=== PATIENT | male | born 1960 | race Caucasian/White ===

== ENCOUNTER 2020-12-29 03:37 | Outpatient (CLI) | payer OTHER, SELFPAY ==
[2020-12-29 13:34] LABS: Abs Immature Grans 0.03 10^3/uL (0.0-0.06); Absolute Basophil Count 0.06 10^3/uL (0.0-0.2); Absolute Eosinophil Count 0.32 10^3/uL (0.0-0.7); Absolute Lymphocyte Count 0.98 10^3/uL (1.2-3.4); Absolute Monocyte Count 0.48 10^3/uL (0.1-0.8); Absolute Neutrophil Count 2.86 10^3/uL (1.2-6.7); Basophils % 1.3; Eosinophils % 6.8; HCT 46.6 % (40.0-50.0); Immature Grans % 0.6; Lymphocytes % 20.7; MCH 28.9 pg (27.0-33.0); MCHC 34.3 % (32.0-36.0); MCV 84.3 fL (80-95); MPV 8.6 fL (8.0-11.0); Monocytes % 10.1; Neutrophils % 60.5; Nucleated RBC 0 %; Platelet Count 198 10^3/uL (130-400); RBC 5.53 10^6/uL (4.36-5.78); RDW 12.3 % (11.8-14.1); RDW-SD 37.4 fL; WBC 4.73 10^3/uL (4.4-10.8)
[2020-12-29 13:57] LABS: ALT 28 U/L (16-63); AST 18 U/L (15-37); Albumin 3.7 g/dL (3.4-5.0); Alkaline Phosphatase 63 U/L (46-116); Anion Gap 8.8 mmol/L (3-11); BUN 13 mg/dL (7-18); Bilirubin, Total 0.5 mg/dL (0.2-1.0); CO2 26.2 mmol/L (21.0-32.0); Calcium 8.7 mg/dL (8.5-10.1); Chloride 105 mmol/L (98-107); Glucose 99 mg/dL (74-106); Potassium 4.1 mmol/L (3.5-5.1); Sodium 140 mmol/L (136-145); Total Protein 7.3 g/dL (6.4-8.2)
== END 2020-12-29 03:38 | disposition home or self-care (01) ==
LOC: LBO 03:38
PROVIDERS: PCP Nurse Practitioner Family; Visit Provider Internal Medicine Hematology & Oncology
DX: C20 Malignant neoplasm of rectum (principal)
CPT/HCPCS: 36415; 80053; 85025

== ENCOUNTER 2021-01-05 03:37 | Outpatient (CLI) | payer OTHER, SELFPAY ==
[2021-01-05 13:01] LABS: Abs Immature Grans 0.01 10^3/uL (0.0-0.06); Absolute Basophil Count 0.04 10^3/uL (0.0-0.2); Absolute Eosinophil Count 0.34 10^3/uL (0.0-0.7); Absolute Lymphocyte Count 0.71 10^3/uL (1.2-3.4); Absolute Monocyte Count 0.51 10^3/uL (0.1-0.8); Absolute Neutrophil Count 2.97 10^3/uL (1.2-6.7); Basophils % 0.9; Eosinophils % 7.4; HCT 46.4 % (40.0-50.0); HGB 15.6 g/dL (13.5-17.5); Immature Grans % 0.2; Lymphocytes % 15.5; MCH 28.7 pg (27.0-33.0); MCHC 33.6 % (32.0-36.0); MCV 85.5 fL (80-95); MPV 8.6 fL (8.0-11.0); Monocytes % 11.1; Neutrophils % 64.9; Nucleated RBC 0 %; Platelet Count 165 10^3/uL (130-400); RBC 5.43 10^6/uL (4.36-5.78); RDW-SD 38.2 fL; WBC 4.58 10^3/uL (4.4-10.8)
[2021-01-05 13:11] LABS: ALT 27 U/L (16-63); AST 18 U/L (15-37); Albumin 3.7 g/dL (3.4-5.0); Alkaline Phosphatase 60 U/L (46-116); Anion Gap 6.4 mmol/L (3-11); BUN 11 mg/dL (7-18); Bilirubin, Total 0.5 mg/dL (0.2-1.0); CO2 28.6 mmol/L (21.0-32.0); CREATININE 0.8 mg/dL (0.70-1.30); Calcium 8.4 mg/dL (8.5-10.1); Chloride 107 mmol/L (98-107); Glucose 95 mg/dL (74-106); Sodium 142 mmol/L (136-145)
== END 2021-01-05 03:38 | disposition home or self-care (01) ==
LOC: LBO 03:37
PROVIDERS: PCP Nurse Practitioner Family; Visit Provider Internal Medicine Hematology & Oncology
DX: C20 Malignant neoplasm of rectum (principal)
CPT/HCPCS: 36415; 80053; 85025

== ENCOUNTER 2021-01-12 04:16 | Outpatient (CLI) | payer OTHER, SELFPAY ==
[2021-01-12 13:40] LABS: Abs Immature Grans 0.01 10^3/uL (0.0-0.06); Absolute Basophil Count 0.05 10^3/uL (0.0-0.2); Absolute Eosinophil Count 0.36 10^3/uL (0.0-0.7); Absolute Lymphocyte Count 0.59 10^3/uL (1.2-3.4); Absolute Monocyte Count 0.58 10^3/uL (0.1-0.8); Absolute Neutrophil Count 4.61 10^3/uL (1.2-6.7); Basophils % 0.8; Eosinophils % 5.8; HGB 16.1 g/dL (13.5-17.5); Immature Grans % 0.2; Lymphocytes % 9.5; MCH 29.1 pg (27.0-33.0); MCHC 34.3 % (32.0-36.0); MCV 84.8 fL (80-95); MPV 8.5 fL (8.0-11.0); Monocytes % 9.4; Neutrophils % 74.3; Nucleated RBC 0 %; Platelet Count 136 10^3/uL (130-400); RBC 5.54 10^6/uL (4.36-5.78); RDW 13.6 % (11.8-14.1); RDW-SD 39.3 fL
[2021-01-12 13:54] LABS: ALT 25 U/L (16-63); AST 20 U/L (15-37); Albumin 3.9 g/dL (3.4-5.0); Alkaline Phosphatase 69 U/L (46-116); Anion Gap 8.7 mmol/L (3-11); BUN 11 mg/dL (7-18); Bilirubin, Total 0.6 mg/dL (0.2-1.0); CO2 27.3 mmol/L (21.0-32.0); CREATININE 0.9 mg/dL (0.70-1.30); Calcium 8.5 mg/dL (8.5-10.1); Chloride 104 mmol/L (98-107); Glucose 113 mg/dL (74-106); Potassium 3.8 mmol/L (3.5-5.1); Sodium 140 mmol/L (136-145); Total Protein 7.5 g/dL (6.4-8.2)
== END 2021-01-12 04:17 | disposition home or self-care (01) ==
LOC: LBO 04:17
PROVIDERS: PCP Nurse Practitioner Family; Visit Provider Internal Medicine Hematology & Oncology
DX: C20 Malignant neoplasm of rectum (principal)
CPT/HCPCS: 36415; 80053; 85025

== ENCOUNTER 2021-01-19 03:50 | Outpatient (CLI) | payer OTHER, SELFPAY ==
[2021-01-19 13:40] LABS: Abs Immature Grans 0.01 10^3/uL (0.0-0.06); Absolute Basophil Count 0.06 10^3/uL (0.0-0.2); Absolute Eosinophil Count 0.35 10^3/uL (0.0-0.7); Absolute Lymphocyte Count 0.45 10^3/uL (1.2-3.4); Absolute Monocyte Count 0.49 10^3/uL (0.1-0.8); Absolute Neutrophil Count 4.56 10^3/uL (1.2-6.7); Eosinophils % 5.9; HCT 45.6 % (40.0-50.0); HGB 15.8 g/dL (13.5-17.5); Immature Grans % 0.2; Lymphocytes % 7.6; MCH 29.3 pg (27.0-33.0); MCHC 34.6 % (32.0-36.0); MCV 84.6 fL (80-95); MPV 8.7 fL (8.0-11.0); Monocytes % 8.3; Nucleated RBC 0 %; Platelet Count 140 10^3/uL (130-400); RBC 5.39 10^6/uL (4.36-5.78); RDW 14.7 % (11.8-14.1); RDW-SD 42.8 fL; WBC 5.92 10^3/uL (4.4-10.8)
[2021-01-19 14:42] LABS: ALT 28 U/L (16-63); AST 22 U/L (15-37); Albumin 4.2 g/dL (3.4-5.0); Alkaline Phosphatase 68 U/L (46-116); BUN 10 mg/dL (7-18); Bilirubin, Total 0.6 mg/dL (0.2-1.0); CREATININE 0.9 mg/dL (0.70-1.30); Calcium 8.7 mg/dL (8.5-10.1); Chloride 106 mmol/L (98-107); Glucose 93 mg/dL (74-106); Potassium 4.5 mmol/L (3.5-5.1); Sodium 141 mmol/L (136-145)
== END 2021-01-19 03:51 | disposition home or self-care (01) ==
LOC: LBO 03:50
PROVIDERS: PCP Nurse Practitioner Family; Visit Provider Internal Medicine Hematology & Oncology
DX: C20 Malignant neoplasm of rectum (principal)
CPT/HCPCS: 36415; 80053; 85025

== ENCOUNTER 2021-01-26 04:25 | Outpatient (CLI) | payer OTHER, SELFPAY ==
[2021-01-26 14:22] LABS: Abs Immature Grans 0.01 10^3/uL (0.0-0.06); Absolute Basophil Count 0.04 10^3/uL (0.0-0.2); Absolute Eosinophil Count 0.29 10^3/uL (0.0-0.7); Absolute Lymphocyte Count 0.48 10^3/uL (1.2-3.4); Absolute Monocyte Count 0.67 10^3/uL (0.1-0.8); Absolute Neutrophil Count 4.43 10^3/uL (1.2-6.7); Basophils % 0.7; Eosinophils % 4.9; HGB 15.6 g/dL (13.5-17.5); Immature Grans % 0.2; Lymphocytes % 8.1; MCH 29.4 pg (27.0-33.0); MCHC 34.7 % (32.0-36.0); MCV 84.7 fL (80-95); MPV 8.8 fL (8.0-11.0); Monocytes % 11.3; Neutrophils % 74.8; Nucleated RBC 0 %; Platelet Count 148 10^3/uL (130-400); RBC 5.31 10^6/uL (4.36-5.78); RDW 15.8 % (11.8-14.1); WBC 5.92 10^3/uL (4.4-10.8)
[2021-01-26 15:23] LABS: ALT 27 U/L (16-63); AST 25 U/L (15-37); Albumin 4.4 g/dL (3.4-5.0); Alkaline Phosphatase 70 U/L (46-116); Anion Gap 9.2 mmol/L (3-11); BUN 11 mg/dL (7-18); Bilirubin, Total 0.8 mg/dL (0.2-1.0); CO2 24.8 mmol/L (21.0-32.0); CREATININE 0.9 mg/dL (0.70-1.30); Calcium 8.9 mg/dL (8.5-10.1); Chloride 106 mmol/L (98-107); Glucose 91 mg/dL (74-106); Potassium 4.2 mmol/L (3.5-5.1); Sodium 140 mmol/L (136-145); Total Protein 7.2 g/dL (6.4-8.2)
== END 2021-01-26 04:26 | disposition home or self-care (01) ==
LOC: LBO 04:25
PROVIDERS: PCP Nurse Practitioner Family; Visit Provider Internal Medicine Hematology & Oncology
DX: C20 Malignant neoplasm of rectum (principal)
CPT/HCPCS: 36415; 80053; 85025

== ENCOUNTER 2021-03-15 02:14 | Outpatient (CLI) | payer OTHER, SELFPAY ==
[2021-03-15 08:35] LABS: Abs Immature Grans 0.02 10^3/uL (0.0-0.06); Absolute Basophil Count 0.08 10^3/uL (0.0-0.2); Absolute Eosinophil Count 0.43 10^3/uL (0.0-0.7); Absolute Lymphocyte Count 0.63 10^3/uL (1.2-3.4); Absolute Neutrophil Count 3.23 10^3/uL (1.2-6.7); Basophils % 1.6; Eosinophils % 8.8; HCT 49.3 % (40.0-50.0); HGB 16.8 g/dL (13.5-17.5); Immature Grans % 0.4; Lymphocytes % 12.9; MCH 30.1 pg (27.0-33.0); MCHC 34.1 % (32.0-36.0); MCV 88.2 fL (80-95); MPV 8.7 fL (8.0-11.0); Monocytes % 10.2; Neutrophils % 66.1; Nucleated RBC 0 %; Platelet Count 177 10^3/uL (130-400); RBC 5.59 10^6/uL (4.36-5.78); RDW 13.9 % (11.8-14.1); RDW-SD 45.4 fL; WBC 4.89 10^3/uL (4.4-10.8)
[2021-03-15] MEDS: Breeza Beverage 473 ML BTL PO ×2 (08:39→08:41)
[2021-03-15] MEDS: Omnipaque 350 MG/ML 50 ML BTL PO (08:40)
[2021-03-15 08:50] LABS: ALT 39 U/L (16-63); AST 26 U/L (15-37); Albumin 4.2 g/dL (3.4-5.0); Alkaline Phosphatase 73 U/L (46-116); Anion Gap 6.7 mmol/L (3-11); BUN 12 mg/dL (7-18); Bilirubin, Total 0.6 mg/dL (0.2-1.0); CO2 30.3 mmol/L (21.0-32.0); CREATININE 0.9 mg/dL (0.70-1.30); Calcium 8.9 mg/dL (8.5-10.1); Chloride 104 mmol/L (98-107); Glucose 97 mg/dL (74-106); Potassium 4.2 mmol/L (3.5-5.1); Sodium 141 mmol/L (136-145); Total Protein 8.1 g/dL (6.4-8.2)
--- NOTE | 2021-03-15 10:43 | DI.CT_ITS ---
Exam(s) CT CHEST/ABD/PEL W EXAM: CT CHEST/ABD/PEL W CLINICAL HISTORY: RECTAL CA, C20, S/P CHEMO/RAD, RESTAGING,[id number]. TECHNIQUE: Imaging Protocol: Axial computed tomography images with coronal and sagittal reformatted images were created and reviewed CONTRAST MATERIAL: Intravenous: Omnipaque 350 Contrast volume:100 ml Oral: Yes COMPARISON: No exams were available for comparison FINDINGS: CHEST: LUNGS: There are no infiltrates nor pleural effusions. There are no ominous pulmonary nodules. No s ignificant focal findings in the trachea and mainstem bronchi.. MEDIASTINUM: There is no hilar nor mediastinal adenopathy. Visualized thyroid unremarkable. CARDIAC: Heart size is normal. There is no pericardial effusion.Caliber of the thoracic aorta is wit hin normal limits. OSSEOUS: No significant osseous lesions.. ABDOMEN: There is no ascites. LIVER: Liver is hypodense implying steatosis. There are no discrete focal hepatic lesions identified . GALLBLADDER/BILIARY: There is a 1.2 by 0.9 cm gallstone in the lower gallbladder. No gallbladder wal l edema nor pericholecystic fluid. The CBD is not dilated. CBD is not dilated. PANCREAS: No evidence of pancreatic mass nor dilatation of the pancreatic duct. SPLEEN: Spleen is not enlarged. There are no intrasplenic lesions. Splenic and portal veins are aynez nt. ADRENALS: There are no significant adrenal masses. KIDNEYS: No focal findings. No calculi.. No cysts evident. ABDOMINAL AORTA: Abdominal aorta is not enlarged. LYMPH NODES: There is no retroperitoneal nor paraaortic adenopathy. ABDOMINAL WALL: There is a fat containing left inguinal hernia. GI: There is no evidence of bowel obstruction.There is circumferential thickening of the rectum which may be related to radiation. PELVIS: LYMPH NODES: There is no intrapelvic nor inguinal adenopathy. GI: No evidence of appendicitis.No evidence of sigmoid diverticulitis. URINARY BLADDER: Uniform circumferential thickening of the bladder wall which measures 5 millimeters thick. Bladder is not distended. This finding possibly related to radiation. Prostate gland is sli ghtly enlarged. Is no obturator adenopathy. REPRODUCTIVE: Prostate gland is not enlarged OSSEOUS: No significant osseous lesions. IMPRESSION: 1. No evidence of metastatic lung nodules nor adenopathy in the chest. Also no pleural effusions. 2. Cholelithiasis. No evidence of acute cholecystitis. 3. No evidence of metastatic disease in the liver nor elsewhere in the abdomen and pelvis. 4. Some circumferential thickening of the rectum is noted but I suspect this is possibly related to r adiation change. RADIATION DOSE DELIVERED: 1,878.94mGy.cm Total DLP DATA REPOSITORY: All CT scans at this facility are submitted to the National Radiology Data Registry (NRDR) Dose Index Registry (DIR) with the [employer] (ACR). RADIATION OPTIMIZATION: All CT scans at this facility use at least one of these dose optimization te chniques: automated exposure control; mA and/or kV adjustment per patient size (includes targeted exa ms where dose is matched to clinical indication); or iterative reconstruction.
[2021-03-15] MEDS: Omnipaque 350 MG/ML 100 ML BTL IJ (10:44)
[2021-03-15] MEDS: Normal Saline Flush 10 ML SYR IVP (10:45)
[2021-03-15] MEDS: Normal Saline - Diluent 50 ML VIAL IV (10:45)
[2021-03-15 17:55] LABS: CEA <2.0 ng/mL (See Note)
== END 2021-03-15 02:34 ==
PROVIDERS: PCP Nurse Practitioner Family; Visit Provider Internal Medicine Hematology & Oncology
DX: C20 Malignant neoplasm of rectum (principal); K80.20 Calculus of gallbladder without cholecystitis without obstruction
CPT/HCPCS: 74177; 80053; 71260; 82378; 85025; J3490; Q9967

== ENCOUNTER 2021-06-30 15:17 | Outpatient (CLI) | payer OTHER, SELFPAY ==
[2021-06-30 12:32] LABS: Abs Immature Grans 0.03 10^3/uL (0.0-0.06); Absolute Basophil Count 0.05 10^3/uL (0.0-0.2); Absolute Eosinophil Count 0.21 10^3/uL (0.0-0.7); Absolute Lymphocyte Count 0.54 10^3/uL (1.2-3.4); Absolute Monocyte Count 0.61 10^3/uL (0.1-0.8); Absolute Neutrophil Count 4.51 10^3/uL (1.2-6.7); Basophils % 0.8; Eosinophils % 3.5; HCT 44.4 % (40.0-50.0); HGB 14.5 g/dL (13.5-17.5); Immature Grans % 0.5; Lymphocytes % 9.1; MCH 27.2 pg (27.0-33.0); MCHC 32.7 % (32.0-36.0); MCV 83.1 fL (80-95); MPV 8.1 fL (8.0-11.0); Monocytes % 10.3; Neutrophils % 75.8; Nucleated RBC 0 %; Platelet Count 167 10^3/uL (130-400); RBC 5.34 10^6/uL (4.36-5.78); RDW 13.4 % (11.8-14.1); RDW-SD 39.6 fL; WBC 5.95 10^3/uL (4.4-10.8)
[2021-06-30 12:51] LABS: ALT 46 U/L (16-63); AST 27 U/L (15-37); Albumin 3.8 g/dL (3.4-5.0); Alkaline Phosphatase 100 U/L (46-116); Anion Gap 5.6 mmol/L (3-11); BUN 10 mg/dL (7-18); Bilirubin, Total 0.6 mg/dL (0.2-1.0); CO2 29.4 mmol/L (21.0-32.0); CREATININE 1.1 mg/dL (0.70-1.30); Calcium 9.1 mg/dL (8.5-10.1); Chloride 100 mmol/L (98-107); Glucose 99 mg/dL (74-106); Sodium 135 mmol/L (136-145); Total Protein 8.4 g/dL (6.4-8.2)
== END 2021-06-30 15:18 | disposition home or self-care (01) ==
LOC: LBO 15:17
PROVIDERS: PCP Nurse Practitioner Family; Visit Provider Internal Medicine Hematology & Oncology
DX: C20 Malignant neoplasm of rectum (principal)
CPT/HCPCS: 36415; 80053; 85025

== ENCOUNTER 2021-07-14 03:49 | Outpatient (RCR) | payer OTHER, SELFPAY ==
[2021-07-14] MEDS: Normal Saline Flush 10 ML SYR IVP (13:06)
[2021-07-14] MEDS: Heparin 500 UNITS/5 ML SYRINGE IV (13:06)
[2021-07-14 13:28] LABS: Abs Immature Grans 0.02 10^3/uL (0.0-0.06); Absolute Basophil Count 0.04 10^3/uL (0.0-0.2); Absolute Eosinophil Count 0.17 10^3/uL (0.0-0.7); Absolute Lymphocyte Count 0.61 10^3/uL (1.2-3.4); Absolute Monocyte Count 0.75 10^3/uL (0.1-0.8); Absolute Neutrophil Count 2.86 10^3/uL (1.2-6.7); Basophils % 0.9; Eosinophils % 3.8; HCT 41.3 % (40.0-50.0); HGB 13.7 g/dL (13.5-17.5); Immature Grans % 0.4; Lymphocytes % 13.7; MCH 27.1 pg (27.0-33.0); MCHC 33.2 % (32.0-36.0); MCV 81.6 fL (80-95); MPV 8.6 fL (8.0-11.0); Monocytes % 16.9; Neutrophils % 64.3; Nucleated RBC 0 %; Platelet Count 115 10^3/uL (130-400); RBC 5.06 10^6/uL (4.36-5.78); RDW 14.6 % (11.8-14.1); RDW-SD 40.6 fL; WBC 4.45 10^3/uL (4.4-10.8)
[2021-07-14 13:39] LABS: ALT 39 U/L (16-63); AST 31 U/L (15-37); Albumin 3.5 g/dL (3.4-5.0); Alkaline Phosphatase 82 U/L (46-116); BUN 10 mg/dL (7-18); Bilirubin, Total 0.6 mg/dL (0.2-1.0); Calcium 8.8 mg/dL (8.5-10.1); Chloride 103 mmol/L (98-107); Glucose 107 mg/dL (74-106); Potassium 3.9 mmol/L (3.5-5.1); Sodium 139 mmol/L (136-145); Total Protein 7.8 g/dL (6.4-8.2)
[2021-07-14 23:05] LABS: CEA 1.6 ng/mL (See Note)
== END 2021-07-17 23:59 | disposition home or self-care (01) ==
LOC: INF 03:49
PROVIDERS: PCP Nurse Practitioner Family; Visit Provider Internal Medicine Hematology & Oncology
DX: C20 Malignant neoplasm of rectum (principal); Z45.2 Encounter for adjustment and management of vascular access device
CPT/HCPCS: 36591; 80053; 82378; 85025

== ENCOUNTER 2021-08-11 03:23 | Outpatient (RCR) | payer OTHER, SELFPAY ==
[2021-07-28] MEDS: Normal Saline Flush 10 ML SYR IVP (13:26)
[2021-07-28] MEDS: Heparin 500 UNITS/5 ML SYRINGE IV (13:26)
[2021-07-28 13:52] LABS: Abs Immature Grans 0.01 10^3/uL (0.0-0.06); Absolute Basophil Count 0.05 10^3/uL (0.0-0.2); Absolute Eosinophil Count 0.12 10^3/uL (0.0-0.7); Absolute Lymphocyte Count 0.65 10^3/uL (1.2-3.4); Absolute Monocyte Count 0.55 10^3/uL (0.1-0.8); Absolute Neutrophil Count 1.78 10^3/uL (1.2-6.7); Basophils % 1.6; Eosinophils % 3.8; HCT 41.9 % (40.0-50.0); Immature Grans % 0.3; Lymphocytes % 20.6; MCH 27.3 pg (27.0-33.0); MCHC 33.4 % (32.0-36.0); MCV 81.8 fL (80-95); MPV 8.4 fL (8.0-11.0); Monocytes % 17.4; Neutrophils % 56.3; Nucleated RBC 0 %; Platelet Count 110 10^3/uL (130-400); RBC 5.12 10^6/uL (4.36-5.78); RDW 15.9 % (11.8-14.1); RDW-SD 44.2 fL; WBC 3.16 10^3/uL (4.4-10.8)
[2021-07-28 14:04] LABS: ALT 39 U/L (16-63); AST 33 U/L (15-37); Albumin 3.6 g/dL (3.4-5.0); Alkaline Phosphatase 89 U/L (46-116); Anion Gap 7.5 mmol/L (3-11); BUN 12 mg/dL (7-18); Bilirubin, Total 0.5 mg/dL (0.2-1.0); CO2 27.5 mmol/L (21.0-32.0); CREATININE 1.1 mg/dL (0.70-1.30); Calcium 9.1 mg/dL (8.5-10.1); Chloride 101 mmol/L (98-107); Glucose 98 mg/dL (74-106); Potassium 3.7 mmol/L (3.5-5.1); Sodium 136 mmol/L (136-145)
[2021-07-28 23:03] LABS: CEA 1.5 ng/mL (See Note)
[2021-08-11] MEDS: Normal Saline Flush 10 ML SYR IVP (13:06)
[2021-08-11 13:24] LABS: Abs Immature Grans 0.03 10^3/uL (0.0-0.06); Absolute Basophil Count 0.05 10^3/uL (0.0-0.2); Absolute Eosinophil Count 0.12 10^3/uL (0.0-0.7); Absolute Lymphocyte Count 0.51 10^3/uL (1.2-3.4); Absolute Monocyte Count 0.57 10^3/uL (0.1-0.8); Absolute Neutrophil Count 3.19 10^3/uL (1.2-6.7); Basophils % 1.1; Eosinophils % 2.7; HCT 38.1 % (40.0-50.0); HGB 12.8 g/dL (13.5-17.5); Immature Grans % 0.7; Lymphocytes % 11.4; MCH 27.4 pg (27.0-33.0); MCHC 33.6 % (32.0-36.0); MCV 81.6 fL (80-95); MPV 8.7 fL (8.0-11.0); Monocytes % 12.8; Neutrophils % 71.3; Nucleated RBC 0 %; Platelet Count 117 10^3/uL (130-400); RBC 4.67 10^6/uL (4.36-5.78); RDW 17.1 % (11.8-14.1); RDW-SD 49.5 fL; WBC 4.47 10^3/uL (4.4-10.8)
[2021-08-11 13:32] LABS: ALT 31 U/L (16-63); AST 29 U/L (15-37); Albumin 3.3 g/dL (3.4-5.0); Alkaline Phosphatase 86 U/L (46-116); Anion Gap 8.4 mmol/L (3-11); BUN 10 mg/dL (7-18); Bilirubin, Total 0.6 mg/dL (0.2-1.0); CO2 27.6 mmol/L (21.0-32.0); CREATININE 0.9 mg/dL (0.70-1.30); Chloride 103 mmol/L (98-107); Glucose 121 mg/dL (74-106); Potassium 3.5 mmol/L (3.5-5.1); Sodium 139 mmol/L (136-145); Total Protein 7.7 g/dL (6.4-8.2)
[2021-08-11 21:11] LABS: CEA 1.4 ng/mL (See Note)
== END 2021-08-14 23:59 | disposition home or self-care (01) ==
LOC: INF 03:23
PROVIDERS: PCP Nurse Practitioner Family; Visit Provider Internal Medicine Hematology & Oncology
DX: C20 Malignant neoplasm of rectum (principal); Z45.2 Encounter for adjustment and management of vascular access device
CPT/HCPCS: 36591; 80053; 82378; 85025

== ENCOUNTER 2021-08-23 15:45 | Emergency (ER) | payer OTHER, SELFPAY ==
[2021-08-23] VITALS (16 sets, daily range): BP systolic 86–146; BP diastolic 62–94; PULSE 97–128; RESP 15–27; TEMP 36.6; O2SAT 98–100
[2021-08-23] MEDS: Normal Saline 1,000 ML 1000 ML IV ×2 (16:15→17:02)
--- NOTE | 2021-08-23 16:27 | ED.GENADUL_ITS ---
Discharge Plan Disposition Patient Disposition: HOME Condition: Improving Discharge Details Clinical Impression: Diarrhea Primary Care Provider: Morgan Urias ED Provider: Carter Senior Home Meds and New Rx's Prescriptions: Continued multivitamin Tablet 1 tab PO DAILY 0RF acetaminophen 325 mg Tablet 650 mg PO PRN0RF prochlorperazine maleate [Compazine] 10 mg Tablet 10 mg PO PRN0RF ondansetron 8 mg Tablet,Disintegrating 8 mg PO PRN0RF tamsulosin 0.4 mg capsule 0.4 mg PO DAILY 0RF ibuprofen 200 mg Tablet 200 mg PO PRN0RF Discharge Instructions Instructions: Acute Diarrhea (ED) Additional Instructions: Plenty of fluids with electrolytes to avoid dehydration or electrolyte abnormality. You may increase your Imodium to 1 tablet every 6 hours for the next 2 days. Please watch for new or worsening symptoms and return to the ER for any concerns. Lastly, please follow-up with your oncology team as already scheduled on Saturday. Discharge Data Discharge Date/Time-TO BE ENTERED AT DEPARTURE: 08/23/21 18:04 Medical Decision Making This is a 60-year-old gentleman currently in treatment for colorectal cancer, and had his fifth dose of chemo 1 week ago, since that time decreased ileostomy output and concern for dehydration. Patient received 1 L IV fluid earlier today and is scheduled to see his oncology team on Saturday. He has been taking Imodium, 2 tablets daily but did forget to take the dose today. He denies any fever, abdominal pain, black tarry stools or bright red blood in his stools. Clinically he appears well, nontoxic. Reports he typically has mild tachycardia, on arrival heart rate is 118. Plan is to obtain IV access, give IV fluids and obtain routine laboratory values including stool studies. Patient received 1 L IV fluid, subjectively reports improvement, heart rate down to 106. Will provide another liter of IV fluid Laboratory values do not reveal any evidence of leukocytosis or anemia. Platelet count of 108 which appears to be near his baseline. Potassium 3.4, will provide 40 p.o. potassium. BUN 35 creatinine 1.5 GFR 47.58, this is below his typical baseline but slightly improved when compared to most recent labs on Saturday. Glucose 112. Anion gap minimally elevated at 12.7. Upon reassessment heart rate is now 98. Patient continues to report improvement of his overall symptoms. C. difficile negative. Awaiting stool pathogen's. Urine unremarkable Discussed work-up with patient and thus far, he reports feeling improvement and is comfortable with discharge. We discussed that he can increase his Imodium to 1 tablet every 6 hours, strict discharge and return precautions were provided, lastly he will follow up with his oncology team on Saturday as already scheduled. Given he has hemodynamically stable, denies any abdominal pain, lack any leukocytosis or fever, I do not believe that emergent imaging of his abdomen and pelvis is indicated at this time. This documentation was generated using [employer] dictation system, please disregard any oddities of phrase or misspellings. Lab Data Lab results reviewed: Yes I reviewed the patient's lab results. Labs: Laboratory Tests Range/Units 08/23/21 08/23/21 08/23/21 16:10 16:10 16:10 WBC (4.4-10.8) 10^3/uL 5.14 RBC (4.36-5.78) 10^6/uL 5.91 H Hgb (13.5-17.5) g/dL 16.0 Hct (40.0-50.0) % 46.6 MCV (80-95) fL 78.8 L MCH (27.0-33.0) pg 27.1 MCHC (32.0-36.0) % 34.3 RDW (11.8-14.1) % 17.0 H Plt Count (130-400) 10^3/uL 108 L MPV (8.0-11.0) fL 9.1 Immature Gran % 0.6 Neutrophils % 73.9 Lymphocytes % 9.9 Monocytes % 13.8 Eosinophils % 1.2 Basophils % 0.6 Nucleated RBC % % 0 Absolute Neutrophils (1.2-6.7) 10^3/uL 3.80 Absolute Lymphocytes (1.2-3.4) 10^3/uL 0.51 L Absolute Monocytes (0.1-0.8) 10^3/uL 0.71 Absolute Eosinophils (0.0-0.7) 10^3/uL 0.06 Absolute Basophils (0.0-0.2) 10^3/uL 0.03 Sodium (136-145) mmol/L 137 Potassium (3.5-5.1) mmol/L 3.4 L Chloride (98-107) mmol/L 101 Carbon Dioxide (21.0-32.0) mmol/L 23.3 Anion Gap (3-11) mmol/L 12.7 H BUN (7-18) mg/dL 35 H Creatinine (0.70-1.30) mg/dL 1.5 H Estimated GFR/1.73 m2 (mL/min/1.73m2) 47.58 Glucose (74-106) mg/dL 112 H Calcium (8.5-10.1) mg/dL 9.2 Total Bilirubin (0.2-1.0) mg/dL 1.0 AST (15-37) U/L 45 H ALT (16-63) U/L 41 Alkaline Phosphatase (46-116) U/L 119 H Total Protein (6.4-8.2) g/dL 8.4 H Albumin (3.4-5.0) g/dL 3.9 Lipase (73-393) U/L 303 Stl C.difficile Tox PCR (Negative) Negative HPI General Mode of arrival: ambulatory . Date/Time Provider Initiated Documentation: 08/23/21 15:51 . Limitations to Documentation: no limitations . Information obtained by: patient . HPI Narrative: This is a 60-year-old gentleman, past medical history of colorectal cancer, sent to the ER for evaluation of increased output from his ileostomy and concern for dehydration. Patient states that he had his fifth chemotherapy treatment approximately 1 week ago and states that this treatment hit him harder than the previous 4. He has had increased ostomy output, feels as though his mucous membranes are dry, and simply cannot drink enough water. He states whenever he eats or drinks it goes directly through him. He was seen at the cancer center today for infusion of IV fluid but they sent him to the ER for further evaluation. He states that he has been trying to follow his ileostomy diet fairly well and he talked with his cancer team and they did have him start on Imodium, he is currently taking 2 tablets/day. He denies recent illness or trauma. He denies fever, abdominal pain, nausea, vomiting, dysuria, hematuria, black tarry stools or bright red blood in his stools. He is scheduled to be seen by his cancer team on Saturday for follow-up. Patient also tells me that he is aware that his heart rate is elevated and states that he typically runs around 100 but today it is usually. He denies any chest pain, short of breath, pain or swelling in his legs. Related Data Home Medications Medication Instructions Recorded Confirmed acetaminophen 325 mg tablet 650 mg PO PRN 08/23/21 ibuprofen 200 mg tablet 200 mg PO PRN 08/23/21 multivitamin 1 tab PO DAILY 08/23/21 08/23/21 ondansetron 8 mg disintegrating 8 mg PO PRN 08/23/21 tablet prochlorperazine maleate 10 mg 10 mg PO PRN 08/23/21 tablet (Compazine) tamsulosin 0.4 mg capsule 0.4 mg PO DAILY 08/23/21 08/23/21 Allergies Allergy/AdvReac Type Severity Reaction Status Date / Time No Known Allergies Allergy Unverified 08/23/21 15:55 General Stated Complaint: Nausea/Vomit/Diar EILEEN: 3 Review of Systems Constitutional Constitutional: Denies fatigue, Denies fever(s), Denies headache(s) and Denies weakness ENT Ears, Nose, Mouth, and Throat: Denies headache(s) and Denies neck pain Cardiovascular Cardiovascular: Denies chest pain and Denies dyspnea Respiratory Respiratory: Denies cough and Denies dyspnea Gastrointestinal Gastrointestinal: Denies abdominal pain, Denies melena, Denies hematochezia, Denies constipation, Reports diarrhea, Denies nausea and Denies vomiting Genitourinary Genitourinary: Denies hematuria and Denies dysuria Musculoskeletal Musculoskeletal: Denies myalgias and Denies neck pain Integumentary/Breasts Skin/Breast: Denies rash Neurologic Neurologic: Denies headache(s) and Denies weakness Endocrine Endocrine: Denies fatigue PFSH All Active Problems (Updated 08/23/21 @ 18:01 by ANIYA Brian) Diarrhea (Acute) Social History Smoking/Tobacco Use Status: Former Tobacco Use Smoking risk assessment performed?: Yes Substance use type: does not use Exam Const General: cooperative, healthy appearing, comfortable and no acute distress Orientation: alert and awake [facility] Head: normal to inspection, normocephalic and atraumatic Mouth: moist mucous membranes abnormal (Slightly dry) Eyes General: appearance normal, both eyes and all related structures Conjunctivae: conjunctivae normal Neck Neck: normal visual inspection, trachea midline and supple Resp Effort & Inspection: normal respiratory effort and able to speak in complete sentences Auscultation: clear to auscultation bilaterally Cardio Rate: tachycardic (118) Rhythm: regular rhythm GI Palpation: not firm, no pulsatile masses, nontender and No Carnett's sign positive Other: Ileostomy with a normal-appearing stoma, nontender, watery loose brown stool present. Back/Spine/Pelvis Back: No back tenderness Skin General skin exam: no rashes or lesions noted Neuro General: patient alert, patient awake, patient oriented x3, moves all extr emities and no focal motor deficits Cognition: normal cognition Speech: speech normal Gait: normal gait Sensory Exam: no sensory deficits noted Extrem General: normal to inspection, full ROM, capillary refill normal, no pedal edema and no calf tenderness Psych Appearance: grossly normal Mental Status: mental status grossly normal Course Vital Signs Vital signs: Vital Signs Temperature 36.6 C 08/23/21 15:50 Pulse 118 H 08/23/21 15:50 Respiratory Rate 16 08/23/21 15:50 Blood Pressure 140/92 H 08/23/21 15:50 Pulse Oximetry 99 08/23/21 15:50 Temperature 36.6 C 08/23/21 15:50 Temperature Source Skin 08/23/21 15:50 Pulse 120 H 08/23/21 16:15 Pulse 116 H 08/23/21 16:15 Respiratory Rate 18 08/23/21 16:15 Blood Pressure 136/94 H 08/23/21 16:15 Blood Pressure Mean 104 08/23/21 16:15 Pulse Oximetry 99 08/23/21 16:15 Oxygen Delivery Method Room Air 08/23/21 15:50 Oxygen Flow Rate 0 08/23/21 15:50 Pain Level 0 08/23/21 15:50
[2021-08-23 16:34] LABS: Abs Immature Grans 0.03 10^3/uL (0.0-0.06); Absolute Basophil Count 0.03 10^3/uL (0.0-0.2); Absolute Eosinophil Count 0.06 10^3/uL (0.0-0.7); Absolute Lymphocyte Count 0.51 10^3/uL (1.2-3.4); Absolute Monocyte Count 0.71 10^3/uL (0.1-0.8); Basophils % 0.6; Eosinophils % 1.2; HCT 46.6 % (40.0-50.0); Immature Grans % 0.6; Lymphocytes % 9.9; MCH 27.1 pg (27.0-33.0); MCHC 34.3 % (32.0-36.0); MCV 78.8 fL (80-95); MPV 9.1 fL (8.0-11.0); Monocytes % 13.8; Neutrophils % 73.9; Nucleated RBC 0 %; Platelet Count 108 10^3/uL (130-400); RBC 5.91 10^6/uL (4.36-5.78); RDW-SD 45.9 fL; WBC 5.14 10^3/uL (4.4-10.8)
[2021-08-23 16:41] LABS: ALT 41 U/L (16-63); AST 45 U/L (15-37); Albumin 3.9 g/dL (3.4-5.0); Alkaline Phosphatase 119 U/L (46-116); Anion Gap 12.7 mmol/L (3-11); BUN 35 mg/dL (7-18); CO2 23.3 mmol/L (21.0-32.0); CREATININE 1.5 mg/dL (0.70-1.30); Calcium 9.2 mg/dL (8.5-10.1); Chloride 101 mmol/L (98-107); Estimated GFR 47.58 (mL/min/1.73m2); Glucose 112 mg/dL (74-106); Lipase 303 U/L (73-393); Potassium 3.4 mmol/L (3.5-5.1); Sodium 137 mmol/L (136-145); Total Protein 8.4 g/dL (6.4-8.2)
[2021-08-23] MEDS: Potassium Chloride 20 MEQ TABCR 40 MEQ PO (17:02)
[2021-08-23 17:22] LABS: C Diff PCR Negative (Negative)
[2021-08-23 18:09] LABS: Bilirubin Negative (Negative); Blood Trace-intact (Negative); Clarity Clear (Clear); Glucose Negative (Negative); Ketones Negative (Negative); Leukocyte Esterase Negative (Negative); Nitrite Negative (Negative); Specific Gravity >= 1.030 (1.005-1.025); Urobilinogen 0.2 EU/dL (Up TO 0.2)
[2021-08-23 18:26] LABS: Bacteria Negative HPF (Negative); C & S Indicated? No; Casts Negative LPF (Negative); Crystals Negative HPF (Negative); Epithelial Cells Negative HPF (Negative); Mucus Negative (Negative); Other Cells Negative (Negative); RBC 0-2 HPF (0-2); WBC 0-2 HPF (0-5)
[2021-08-25 10:55] LABS: Campylobacter PCR Negative (Negative); Salmonella PCR Negative (Negative); Shiga Toxin PCR Negative (Negative); Shigella/Enteroinvasive Ecoli Negative (Negative)
== END 2021-08-23 18:04 | disposition home or self-care (01) ==
PROVIDERS: Emergency Provider Physician Assistant; PCP Nurse Practitioner Family
DX: R19.7 Diarrhea, unspecified (principal); C19 Malignant neoplasm of rectosigmoid junction; E87.6 Hypokalemia; Z93.2 Ileostomy status
CPT/HCPCS: 80053; 83690; 87493; 87505; 96360; 96361; 99284; 81003; 81015; 85025; 99283

== ENCOUNTER 2021-09-08 02:57 | Outpatient (RCR) | payer OTHER, SELFPAY ==
[2021-08-21] MEDS: Normal Saline Flush 10 ML SYR IVP (13:59)
[2021-08-21 14:24] LABS: BUN 37 mg/dL (7-18); CREATININE 1.6 mg/dL (0.70-1.30); Calcium 9.4 mg/dL (8.5-10.1); Chloride 99 mmol/L (98-107); Estimated GFR 44.16 (mL/min/1.73m2); Glucose 127 mg/dL (74-106); Potassium 3.8 mmol/L (3.5-5.1); Sodium 134 mmol/L (136-145)
[2021-08-21 14:28] LABS: CO2 21.1 mmol/L (21.0-32.0)
[2021-08-21 14:30] LABS: Anion Gap 13.9 mmol/L (3-11)
[2021-08-22 11:56] LABS: Magnesium 2.5 mg/dL (1.8-2.4)
[2021-08-25] MEDS: Normal Saline Flush 10 ML SYR IVP (09:39)
[2021-08-25 10:02] LABS: Abs Immature Grans 0.06 10^3/uL (0.0-0.06); Absolute Basophil Count 0.03 10^3/uL (0.0-0.2); Absolute Lymphocyte Count 0.48 10^3/uL (1.2-3.4); Absolute Monocyte Count 1.14 10^3/uL (0.1-0.8); Absolute Neutrophil Count 8.86 10^3/uL (1.2-6.7); Basophils % 0.3; HGB 17.1 g/dL (13.5-17.5); Immature Grans % 0.6; Lymphocytes % 4.5; MCH 27.5 pg (27.0-33.0); MCHC 34.2 % (32.0-36.0); MCV 80.5 fL (80-95); MPV 8.7 fL (8.0-11.0); Monocytes % 10.8; Neutrophils % 83.8; Nucleated RBC 0 %; Platelet Count 149 10^3/uL (130-400); RDW-SD 47.4 fL; WBC 10.57 10^3/uL (4.4-10.8)
[2021-08-25 10:04] LABS: RBC 6.21 10^6/uL (4.36-5.78)
[2021-08-25 10:25] LABS: ALT 65 U/L (16-63); AST 64 U/L (15-37); Albumin 4.3 g/dL (3.4-5.0); Alkaline Phosphatase 147 U/L (46-116); Anion Gap 15.2 mmol/L (3-11); BUN 43 mg/dL (7-18); Bilirubin, Total 0.8 mg/dL (0.2-1.0); CO2 19.8 mmol/L (21.0-32.0); CREATININE 2.6 mg/dL (0.70-1.30); Calcium 9.8 mg/dL (8.5-10.1); Chloride 102 mmol/L (98-107); Estimated GFR 25.22 (mL/min/1.73m2); Glucose 132 mg/dL (74-106); Magnesium 2.8 mg/dL (1.8-2.4); Potassium 3.3 mmol/L (3.5-5.1); Sodium 137 mmol/L (136-145); Total Protein 9.2 g/dL (6.4-8.2)
[2021-08-25 18:24] LABS: CEA 1.2 ng/mL (See Note)
[2021-09-01] MEDS: Normal Saline Flush 10 ML SYR IVP (09:42)
[2021-09-01] MEDS: Heparin 500 UNITS/5 ML SYRINGE IV (09:42)
[2021-09-01 09:45] LABS: Abs Immature Grans 0.01 10^3/uL (0.0-0.06); Absolute Basophil Count 0.03 10^3/uL (0.0-0.2); Absolute Eosinophil Count 0.06 10^3/uL (0.0-0.7); Absolute Lymphocyte Count 0.37 10^3/uL (1.2-3.4); Absolute Monocyte Count 0.65 10^3/uL (0.1-0.8); Absolute Neutrophil Count 1.43 10^3/uL (1.2-6.7); Basophils % 1.2; Eosinophils % 2.4; HGB 12.6 g/dL (13.5-17.5); Immature Grans % 0.4; Lymphocytes % 14.5; MCH 28.2 pg (27.0-33.0); MCHC 33.2 % (32.0-36.0); MPV 8.7 fL (8.0-11.0); Monocytes % 25.5; Nucleated RBC 0 %; Platelet Count 109 10^3/uL (130-400); RBC 4.47 10^6/uL (4.36-5.78); WBC 2.55 10^3/uL (4.4-10.8)
[2021-09-01 10:03] LABS: ALT 52 U/L (16-63); AST 42 U/L (15-37); Albumin 3.1 g/dL (3.4-5.0); Alkaline Phosphatase 123 U/L (46-116); BUN 13 mg/dL (7-18); Bilirubin, Total 0.5 mg/dL (0.2-1.0); CREATININE 1.2 mg/dL (0.70-1.30); Calcium 8.5 mg/dL (8.5-10.1); Chloride 105 mmol/L (98-107); Glucose 141 mg/dL (74-106); Potassium 4.2 mmol/L (3.5-5.1); Sodium 135 mmol/L (136-145)
[2021-09-08] MEDS: Heparin 500 UNITS/5 ML SYRINGE IV (12:57)
[2021-09-08] MEDS: Normal Saline Flush 10 ML SYR IVP (12:57)
[2021-09-08 13:16] LABS: Abs Immature Grans 0.02 10^3/uL (0.0-0.06); Absolute Basophil Count 0.03 10^3/uL (0.0-0.2); Absolute Eosinophil Count 0.25 10^3/uL (0.0-0.7); Absolute Lymphocyte Count 0.51 10^3/uL (1.2-3.4); Basophils % 0.7; Eosinophils % 5.5; HCT 38.2 % (40.0-50.0); HGB 12.4 g/dL (13.5-17.5); Immature Grans % 0.4; Lymphocytes % 11.3; MCHC 32.5 % (32.0-36.0); MCV 86.2 fL (80-95); MPV 8.1 fL (8.0-11.0); Monocytes % 13.3; Neutrophils % 68.8; Nucleated RBC 0 %; Platelet Count 149 10^3/uL (130-400); RBC 4.43 10^6/uL (4.36-5.78); RDW 18.4 % (11.8-14.1); RDW-SD 57.9 fL; WBC 4.51 10^3/uL (4.4-10.8)
[2021-09-08 13:34] LABS: ALT 38 U/L (16-63); AST 32 U/L (15-37); Albumin 2.9 g/dL (3.4-5.0); Alkaline Phosphatase 107 U/L (46-116); Anion Gap 6.7 mmol/L (3-11); BUN 8 mg/dL (7-18); Bilirubin, Total 0.4 mg/dL (0.2-1.0); CO2 28.3 mmol/L (21.0-32.0); Chloride 106 mmol/L (98-107); Glucose 135 mg/dL (74-106); Magnesium 2.2 mg/dL (1.8-2.4); Potassium 3.9 mmol/L (3.5-5.1); Sodium 141 mmol/L (136-145); Total Protein 7.1 g/dL (6.4-8.2)
[2021-09-08 22:33] LABS: CEA 1.8 ng/mL (See Note)
== END 2021-09-14 23:59 | disposition home or self-care (01) ==
LOC: INF 02:57
PROVIDERS: Nurse Practitioner Adult Health; PCP Nurse Practitioner Family; Visit Provider Internal Medicine Hematology & Oncology
DX: R19.7 Diarrhea, unspecified (principal); R11.2 Nausea with vomiting, unspecified; T50.905A Adverse effect of unspecified drugs, medicaments and biological substances, initial encounter; C20 Malignant neoplasm of rectum
CPT/HCPCS: 36415; 36591; 80048; 80053; 96523; 82378; 83735; 85025

== ENCOUNTER 2021-09-08 15:36 | Outpatient (REF) | payer OTHER, SELFPAY ==
[2021-09-08 16:42] LABS: Bilirubin Negative (Negative); Blood Negative (Negative); Clarity Clear (Clear); Glucose Negative (Negative); Ketones Negative (Negative); Leukocyte Esterase Negative (Negative); Nitrite Negative (Negative); Specific Gravity >= 1.030 (1.005-1.025); Urobilinogen 0.2 EU/dL (Up TO 0.2); pH 5.5 (5-8)
== END 2021-09-08 15:37 | disposition home or self-care (01) ==
LOC: LBN 15:36
PROVIDERS: PCP Nurse Practitioner Family; Visit Provider Internal Medicine Hematology & Oncology
DX: N20.0 Calculus of kidney (principal)
CPT/HCPCS: 81003

== ENCOUNTER 2021-09-28 02:10 | Outpatient (RCR) | payer OTHER, SELFPAY ==
[2021-09-28] MEDS: Normal Saline Flush 10 ML SYR IVP (10:06)
[2021-09-28] MEDS: Heparin 500 UNITS/5 ML SYRINGE IV (10:06)
== END 2021-10-14 23:59 | disposition home or self-care (01) ==
LOC: INF 02:10
PROVIDERS: PCP Nurse Practitioner Family; Visit Provider Internal Medicine Hematology & Oncology
DX: Z45.2 Encounter for adjustment and management of vascular access device (principal)
CPT/HCPCS: 96523

== ENCOUNTER 2022-01-05 02:26 | Outpatient (CLI) | payer OTHER, SELFPAY ==
[2022-01-05 09:32] LABS: Abs Immature Grans 0.02 10^3/uL (0.0-0.06); Absolute Basophil Count 0.08 10^3/uL (0.0-0.2); Absolute Eosinophil Count 0.36 10^3/uL (0.0-0.7); Absolute Lymphocyte Count 0.54 10^3/uL (1.2-3.4); Absolute Monocyte Count 0.57 10^3/uL (0.1-0.8); Eosinophils % 4.4; HCT 40.3 % (40.0-50.0); HGB 13.5 g/dL (13.5-17.5); Immature Grans % 0.2; Lymphocytes % 6.6; MCH 27.3 pg (27.0-33.0); MCHC 33.5 % (32.0-36.0); MCV 81 fL (80-95); MPV 8.1 fL (8.0-11.0); Neutrophils % 80.8; Platelet Count 264 10^3/uL (130-400); RBC 4.95 10^6/uL (4.36-5.78); RDW-SD 43.9 fL; WBC 8.17 10^3/uL (4.4-10.8)
[2022-01-05 09:47] LABS: ALT 24 U/L (16-63); AST 16 U/L (15-37); Albumin 3.4 g/dL (3.4-5.0); Alkaline Phosphatase 81 U/L (46-116); Anion Gap 7.4 mmol/L (3-11); BUN 14 mg/dL (7-18); Bilirubin, Total 0.5 mg/dL (0.2-1.0); CO2 26.6 mmol/L (21.0-32.0); CREATININE 1.2 mg/dL (0.70-1.30); Chloride 104 mmol/L (98-107); Glucose 109 mg/dL (74-106); Potassium 4.1 mmol/L (3.5-5.1); Sodium 138 mmol/L (136-145); Total Protein 8.1 g/dL (6.4-8.2)
[2022-01-05 19:49] LABS: CEA 0.9 ng/mL (See Note)
== END 2022-01-05 02:27 | disposition home or self-care (01) ==
LOC: LBO 02:26
PROVIDERS: PCP Nurse Practitioner Family; Visit Provider Internal Medicine Hematology & Oncology
DX: C20 Malignant neoplasm of rectum (principal); R19.7 Diarrhea, unspecified; T50.905A Adverse effect of unspecified drugs, medicaments and biological substances, initial encounter; R11.2 Nausea with vomiting, unspecified
CPT/HCPCS: 36415; 80053; 82378; 83735; 85025

== ENCOUNTER 2022-01-05 18:18 | Outpatient (CLI) | payer SELFPAY | END 2022-01-05 18:19 | disposition home or self-care (01) | LOC: LBO 18:18 | PROVIDERS: PCP Nurse Practitioner Family; Visit Provider Internal Medicine Hematology & Oncology ==

== ENCOUNTER 2022-11-21 03:17 | Outpatient (CLI) | payer OTHER, SELFPAY ==
--- NOTE | 2022-11-21 | DI.CT_ITS ---
Exam(s) CT CHEST W EXAM: CT CHEST W CLINICAL HISTORY: RECTAL CA, C20, [id number] TECHNIQUE: Imaging Protocol: Axial computed tomography images with coronal and sagittal reformatted images were created and reviewed CONTRAST MATERIAL: Intravenous: Omnipaque 350Contrast volume:100 mL. COMPARISON: CT CT CHEST W from 09/28/2021 FINDINGS: Tracheobronchial tree: Patent where visualized. Pulmonary parenchyma: No consolidation or dominant measurable mass. No architectural distortion. Mediastinum and Prachi: No dominant adenopathy or fluid collection. The esophagus is unremarkable. Thyroid gland: Unremarkable. Pleura: No effusion or pneumothorax. Heart: The heart is not dilated. No coronary artery calcifications are seen. No pericardial effusion. Aorta: Thoracic aorta non-dilated. Mild atherosclerosis. Pulmonary arteries: Pulmonary arteries are not adequately opacified for evaluation of pulmonary embol i. Upper abdomen: There is decreased attenuation of the liver which can be seen with fatty infiltration . There is a gallstone present. No biliary ductal dilatation. The superior aspect of a left nephro ureteral stent is present. Lymph nodes: Within normal limits. Bones: Within normal limits for the patient's age. Soft tissues: Mild gynecomastia. IMPRESSION: 1. No evidence of thoracic metastatic disease. 2. No acute pulmonary process. 3. Incidental finding seen in the upper abdomen. RADIATION DOSE DELIVERED: 652.67mGy.cm Total DLP DATA REPOSITORY: All CT scans at this facility are submitted to the National Radiology Data Registry (NRDR) Dose Index Registry (DIR) with the [employer] (ACR). RADIATION OPTIMIZATION: All CT scans at this facility use at least one of these dose optimization te chniques: automated exposure control; mA and/or kV adjustment per patient size (includes targeted exa ms where dose is matched to clinical indication); or iterative reconstruction.
[2022-11-21 14:21] LABS: Abs Immature Grans 0.01 10^3/uL (0.0-0.06); Absolute Basophil Count 0.05 10^3/uL (0.0-0.2); Absolute Eosinophil Count 0.34 10^3/uL (0.0-0.7); Absolute Monocyte Count 0.43 10^3/uL (0.1-0.8); Absolute Neutrophil Count 3.21 10^3/uL (1.2-6.7); Eosinophils % 6.9; HCT 45.9 % (40.0-50.0); HGB 15.6 g/dL (13.5-17.5); Immature Grans % 0.2; Lymphocytes % 18.2; MCH 28.9 pg (27.0-33.0); MCV 85 fL (80-95); MPV 8.6 fL (8.0-11.0); Monocytes % 8.7; Platelet Count 170 10^3/uL (130-400); RBC 5.39 10^6/uL (4.36-5.78); RDW 12.6 % (11.8-14.1); RDW-SD 38.6 fL; WBC 4.94 10^3/uL (4.4-10.8)
[2022-11-21 14:35] LABS: ALT 36 U/L (16-63); AST 26 U/L (15-37); Albumin 4.1 g/dL (3.4-5.0); Alkaline Phosphatase 79 U/L (46-116); Anion Gap 5.9 mmol/L (3-11); BUN 13 mg/dL (7-18); Bilirubin, Total 0.6 mg/dL (0.2-1.0); CO2 28.1 mmol/L (21.0-32.0); CREATININE 1.2 mg/dL (0.70-1.30); Calcium 8.9 mg/dL (8.5-10.1); Chloride 103 mmol/L (98-107); Estimated GFR 68.38 (mL/min/1.73m2); Glucose 96 mg/dL (74-106); Potassium 4.1 mmol/L (3.5-5.1); Sodium 137 mmol/L (136-145)
[2022-11-21] MEDS: Omnipaque 350 MG/ML 100 ML BTL IJ (15:24)
[2022-11-21] MEDS: Normal Saline - Diluent 50 ML VIAL IJ (15:25)
[2022-11-22 18:58] LABS: CEA 1.1 ng/mL (See Note)
== END 2022-11-21 03:37 ==
PROVIDERS: PCP Nurse Practitioner Family; Visit Provider Nurse Practitioner Family
DX: C20 Malignant neoplasm of rectum (principal); K76.0 Fatty (change of) liver, not elsewhere classified
CPT/HCPCS: 80053; 71260; 82378; 85025; J3490

== ENCOUNTER → 2023-03-14 03:45 | Outpatient (CLI) | payer OTHER, SELFPAY ==
[2023-03-14] MEDS: Breeza Beverage 473 ML BTL 946 ML PO (13:12)
[2023-03-14] MEDS: Omnipaque 350 MG/ML 50 ML BTL IJ (13:13)
[2023-03-14 14:00] LABS: Abs Immature Grans 0.01 10^3/uL (0.0-0.06); Absolute Basophil Count 0.06 10^3/uL (0.0-0.2); Absolute Eosinophil Count 0.29 10^3/uL (0.0-0.7); Absolute Lymphocyte Count 0.86 10^3/uL (1.2-3.4); Absolute Monocyte Count 0.54 10^3/uL (0.1-0.8); Absolute Neutrophil Count 3.05 10^3/uL (1.2-6.7); Basophils % 1.2; HCT 46.7 % (40.0-50.0); HGB 16.3 g/dL (13.5-17.5); Immature Grans % 0.2; Lymphocytes % 17.9; MCH 29.5 pg (27.0-33.0); MCHC 34.9 % (32.0-36.0); MCV 84 fL (80-95); MPV 8.4 fL (8.0-11.0); Monocytes % 11.2; Neutrophils % 63.5; Platelet Count 145 10^3/uL (130-400); RBC 5.53 10^6/uL (4.36-5.78); RDW 12.7 % (11.8-14.1); RDW-SD 38.9 fL; WBC 4.81 10^3/uL (4.4-10.8)
[2023-03-14 14:17] LABS: ALT 37 U/L (16-63); AST 28 U/L (15-37); Albumin 3.9 g/dL (3.4-5.0); Alkaline Phosphatase 74 U/L (46-116); Anion Gap 7.5 mmol/L (3-11); BUN 14 mg/dL (7-18); Bilirubin, Total 0.6 mg/dL (0.2-1.0); CO2 26.5 mmol/L (21.0-32.0); CREATININE 1.4 mg/dL (0.70-1.30); Calcium 9.3 mg/dL (8.5-10.1); Chloride 104 mmol/L (98-107); Estimated GFR 56.48 (mL/min/1.73m2); Glucose 94 mg/dL (74-106); Potassium 4.1 mmol/L (3.5-5.1); Sodium 138 mmol/L (136-145); Total Protein 7.6 g/dL (6.4-8.2)
[2023-03-14] MEDS: Omnipaque 350 MG/ML 100 ML BTL IJ (14:53)
[2023-03-14] MEDS: Normal Saline - Diluent 50 ML VIAL IJ (14:54)
--- NOTE | 2023-03-14 15:03 | DI.CT_ITS ---
Exam(s) CT CHEST/ABD/PEL W EXAM: CT CHEST/ABD/PEL W CLINICAL HISTORY: RECTAL CA, C20,S/P CHEMO,RT,[id number]. TECHNIQUE: Imaging Protocol: Axial computed tomography images with coronal and sagittal reformatted images were created and reviewed CONTRAST MATERIAL: Intravenous: Omnipaque 350 Contrast volume:100 ml Oral: None COMPARISON: CT CT CHEST/ABD/PEL W from 03/15/[address] CHEST W from 09/28/[address] CHEST W from 11/21/2022 FINDINGS: CHEST: LUNGS: There are no significant pulmonary nodules nor pleural effusions. No infiltrates.. MEDIASTINUM: There is no hilar nor mediastinal adenopathy. Patch that CARDIAC: Heart size is normal. There is no pericardial effusion.Caliber of the thoracic aorta is wit hin normal limits. OSSEOUS: No significant osseous lesions.. ABDOMEN: There is no ascites. LIVER: There are no focal hepatic lesions nor dilatation of intrahepatic ducts. Mild hepatic steatos is. GALLBLADDER/BILIARY: Cholelithiasis again noted. No evidence of acute cholecystitis. CBD is not dil ated. PANCREAS: No evidence of pancreatic mass nor dilatation of the pancreatic duct. SPLEEN: Spleen is not enlarged. There are no intrasplenic lesions. Splenic and portal veins are yanez nt. ADRENALS: There are no significant adrenal masses. KIDNEYS: Components of the upper collecting systems bilaterally. No calculi evident in the kidneys a nd ureters. No renal masses nor cysts.. ABDOMINAL AORTA: Abdominal aorta is not enlarged. LYMPH NODES: There is no retroperitoneal nor paraaortic adenopathy. ABDOMINAL WALL/GI: There is a right-sided ostomy with large hernia sac containing numerous non edemat ous and nonobstructed small bowel loops. The colon is collapsed and exhibits fat halo sign throughou t its length. In the low pelvis there is rectal level and asked him 0 CIS, presently at rest. There is abundant ab normal surrounding abnormal tissue in this presacral region, not associated with sacral destruction. Cannot exclude neoplastic tissue versus scarring/post radiation changes. These findings were not ev ident on the most recent CT scan through this area which is 03/15/2021. PELVIS: LYMPH NODES: There is no intrapelvic nor inguinal adenopathy. GI: No evidence of appendicitis.No evidence of sigmoid diverticulitis. URINARY BLADDER: No calculi nor masses evident REPRODUCTIVE: Prostate size upper normal. OSSEOUS: No significant osseous lesions. No fractures. IMPRESSION: 1. Compared to prior CT scan of 03/15/2021 there has been interval low rectal surgery with creation o f a right sided ileostomy with hernia at the ostomy site as described above but no bowel obstruction. In the deep pelvis around the anastomosis there is abundant abnormal tissue which may be postsurgic al versus post radiation. Cannot exclude this being neoplastic tissue. There is no destruction of t he adjacent sacrum. 2. No evidence of metastatic disease in the liver and no ascites. 3. Mild dilatation of the upper bilateral renal collecting systems-mild bilateral hydronephrosis. 4. No obvious obstructing calculi. The lower ureters are not dilated. 5. Cholelithiasis. No evidence of acute cholecystitis nor dilatation of the biliary tree. RADIATION DOSE DELIVERED: 2,339.39mGy.cm Total DLP DATA REPOSITORY: All CT scans at this facility are submitted to the National Radiology Data Registry (NRDR) Dose Index Registry (DIR) with the [employer] (ACR). RADIATION OPTIMIZATION: All CT scans at this facility use at least one of these dose optimization te chniques: automated exposure control; mA and/or kV adjustment per patient size (includes targeted exa ms where dose is matched to clinical indication); or iterative reconstruction.
[2023-03-14 22:26] LABS: CEA 1.5 ng/mL (See Note)
== END ==
PROVIDERS: PCP Nurse Practitioner Family; Visit Provider Nurse Practitioner Family
DX: N13.30 Unspecified hydronephrosis (principal); K80.80 Other cholelithiasis without obstruction; K43.5 Parastomal hernia without obstruction or gangrene
CPT/HCPCS: 74177; 80053; 71260; 82378; 85025; J3490; Q9967